=== PATIENT | male | born 1975 | race Two or more races ===

== ENCOUNTER 2017-06-01 10:51 | Outpatient (CLI) | payer OTHER ==
[~2017-06-01 10:51] MED LIST: CEFADROXIL500 MG PO; LEVSIN/SL0.125 MG PO
== END 2017-06-01 11:00 | disposition home or self-care (01) ==
LOC: SONOGRAMA 10:51
DX: R10.11 Right upper quadrant pain (principal); K80.20 Calculus of gallbladder without cholecystitis without obstruction

== ENCOUNTER 2019-05-14 20:14 | Emergency (ER) | payer OTHER ==
[~2019-05-14] VITALS: Ht 177.8 cm; Wt 90.7 kg
== END 2019-05-14 21:17 | disposition home or self-care (01) ==
LOC: ER 20:14
DX: T78.1XXA Other adverse food reactions, not elsewhere classified, initial encounter (principal); R21 Rash and other nonspecific skin eruption

== ENCOUNTER 2023-05-08 12:55 | Emergency (ER) | payer OTHER ==
[~2023-05-08] VITALS: Ht 177.8 cm; Wt 88.5 kg
[2023-05-08 15:57] LABS: HEMATOCRIT 42.4 % (39.0-48.0); MEAN CELL VOLUME 87.4 fL (80.0-100.00); MEAN CORPUSCULAR HEMOGLOBIN 30.9 pg (27.00-32.0); MEAN CORPUSCULAR HGB CONC 35.3 g/dl (32.0-36.0); PLATELET COUNT 302 K/uL (150-450); RED BLOOD COUNT 4.85 M/uL (4.00-6.00); RED CELL DISTRIBUTION WIDTH 12.2 % (11.5-14.5)
[2023-05-08 16:22] LABS: CALCIUM 9.4 mg/dL (8.5-10.1); CREATININE SERUM 0.88 mg/dL (0.70-1.30); GFR 93.23; POTASSIUM 3.54 mEq/L (3.5-5.1)
== END 2023-05-08 16:40 | disposition home or self-care (01) ==
LOC: ER 12:56
PROVIDERS: Emergency Medicine
DX: R07.9 Chest pain, unspecified (principal); R53.81 Other malaise; I10 Essential (primary) hypertension; Z91.013 Allergy to seafood

== ENCOUNTER 2023-05-23 03:13 | Emergency (ER) | payer OTHER ==
[~2023-05-23] VITALS: Ht 177.8 cm; Wt 88.5 kg
[2023-05-23] MEDS ORDERED: COZAAR50 MG PO (03:31)
[2023-05-23] MEDS ORDERED: CRESTOR10 MG PO (03:31)
[2023-05-23] MEDS ORDERED: MONTELUKAST SODI4 M1 PO (03:32)
[2023-05-23] MEDS ORDERED: SYMBICORT 16010.2 GM IH (03:32)
[2023-05-23] MEDS ORDERED: SPIRIVA (03:32)
[2023-05-23] MEDS ORDERED: FAMOTIDINE/PF 20 MG/2 ML VIAL IV PUSH STA (04:34)
[2023-05-23] MEDS ORDERED: KETOROLAC TROMETHAMINE 30 MG VIAL IV STA (04:34)
[2023-05-23] MEDS ORDERED: 0.9 % SODIUM CHLORIDE 1,000 ML IV ONE (04:45)
[2023-05-23 05:12] LABS: HEMATOCRIT 40.8 % (39.0-48.0); HEMOGLOBIN 14.3 g/dL (13-16.00); MEAN CELL VOLUME 87.7 fL (80.0-100.00); MEAN CORPUSCULAR HEMOGLOBIN 30.8 pg (27.00-32.0); MEAN CORPUSCULAR HGB CONC 35.1 g/dl (32.0-36.0); PLATELET COUNT 222 K/uL (150-450); RED BLOOD COUNT 4.65 M/uL (4.00-6.00); RED CELL DISTRIBUTION WIDTH 12.7 % (11.5-14.5)
[2023-05-23 05:29] LABS: INR 1.04; PROTHROMBIN TIME 10.9 SECONDS (9.0-11.5)
[2023-05-23 05:35] LABS: ALBUMIN 3.6 gm/dL (3.4-5.0); BILIRUBIN TOTAL 1.22 mg/dL (0.3-1.2); BILIRUBIN,CONJUGATED 0.5 mg/dL (0.0-0.2); BILIRUBIN,UNCONJUGATED 0.72 mg/dL (0.0-0.6); CREATININE SERUM 0.91 mg/dL (0.70-1.30); GFR 89.69; GLOBULINA 3.3 G/DL (2.4-3.5); POTASSIUM 3.4 mEq/L (3.5-5.1); TOTAL PROTEIN 6.9 gm/dL (6.4-8.2)
[2023-05-23 06:46] LABS: URINE APPEARANCE Clear; URINE BILIRRUBIN Negative (NEGATIVE); URINE BLOOD Negative; URINE COLOR Yellow; URINE GLUCOSE Negative (NEGATIVE); URINE LEUKOCYTE Negative; URINE NITRATE Negative; URINE PROTEIN Negative (NEGATIVE)
[2023-05-23 06:51] LABS: URINE RBC 2.4 uL (0.0-20.8); URINE WBC 2.9 uL (0.0-23.2)
[2023-05-23 07:14] LABS: URINE EPITHELIAL CELLS 0.6 uL (0.0-38.8)
== END 2023-05-23 09:13 | disposition home or self-care (01) ==
LOC: ER 03:13
PROVIDERS: General Practice
DX: K82.4 Cholesterolosis of gallbladder (principal); I10 Essential (primary) hypertension; Z91.013 Allergy to seafood

== ENCOUNTER 2024-01-09 07:48 | Outpatient (CLI) | payer OTHER ==
[~2024-01-09 07:48] MED LIST changes: +COZAAR50 MG PO; +CRESTOR10 MG PO; +MONTELUKAST SODI4 M1 PO; +SPIRIVA; +SYMBICORT 16010.2 GM IH
== END 2024-01-09 14:11 | disposition home or self-care (01) ==
LOC: TOM 07:48
PROVIDERS: ATTEND Family Medicine
DX: R10.9 Unspecified abdominal pain (principal); J45.901 Unspecified asthma with (acute) exacerbation; R10.2 Pelvic and perineal pain; I11.9 Hypertensive heart disease without heart failure; K81.9 Cholecystitis, unspecified; K57.90 Diverticulosis of intestine, part unspecified, without perforation or abscess without bleeding; K29.70 Gastritis, unspecified, without bleeding; K21.9 Gastro-esophageal reflux disease without esophagitis; R73.01 Impaired fasting glucose; R22.2 Localized swelling, mass and lump, trunk; E66.9 Obesity, unspecified; Z12.5 Encounter for screening for malignant neoplasm of prostate